=== PATIENT | female | born 1960 | race Caucasian/White ===

== ENCOUNTER → 2017-11-06 | Outpatient (CLI) | payer OTHER ==
[~2017-11-06] MED LIST: ASCORBIC ACID500 M2 PO; EPIPEN 2-P0.3 MG/0.3 IM; GAS-X125 MG PO; IBUPROFEN 800800 M1 PO; KEFLEX500 MG PO; MEDROLDOSEPACK PO; NOHOMEMEDICATIONS; PREDNISONE 20 M20 M1 PO; VICODIN PO; VISTARIL 25 MG25 M1 PO; VITCB500GO
== END ==
LOC: M.RAD 16:45
DX: M79.671 Pain in right foot (principal); Z88.2 Allergy status to sulfonamides

== ENCOUNTER → 2018-01-13 | Outpatient (CLI) | payer OTHER | LOC: M.RAD 14:50 | DX: R92.0 Mammographic microcalcification found on diagnostic imaging of breast (principal) ==

== ENCOUNTER → 2018-07-06 | Outpatient (CLI) | payer OTHER | LOC: M.RAD 09:50 | DX: Z12.31 Encounter for screening mammogram for malignant neoplasm of breast (principal) ==

== ENCOUNTER → 2019-07-09 | Outpatient (CLI) | payer OTHER | LOC: M.RAD 07-06 15:00 | DX: Z12.31 Encounter for screening mammogram for malignant neoplasm of breast (principal) ==

== ENCOUNTER → 2020-07-11 | Outpatient (CLI) | payer OTHER | LOC: M.RAD 14:41 | DX: Z12.31 Encounter for screening mammogram for malignant neoplasm of breast (principal) ==

== ENCOUNTER → 2020-07-26 | Outpatient (CLI) | payer OTHER | LOC: M.ULTRA 07-25 15:00 | DX: R92.2 Inconclusive mammogram (principal) ==

== ENCOUNTER → 2021-01-04 | Outpatient (CLI) | payer OTHER | LOC: M.ULTRA 15:00 | PROVIDERS: ATTEND Family Medicine | DX: R92.0 Mammographic microcalcification found on diagnostic imaging of breast (principal); N63.20 Unspecified lump in the left breast, unspecified quadrant ==

== ENCOUNTER → 2021-07-12 | Outpatient (CLI) | payer OTHER | LOC: M.RAD 07:00 | PROVIDERS: ATTEND Family Medicine | DX: Z12.31 Encounter for screening mammogram for malignant neoplasm of breast (principal) ==